=== PATIENT | male | born 1965 | race Caucasian/White ===

== ENCOUNTER 2018-02-16 14:37 | Emergency (ER) | payer BC ==
--- NOTE | 2018-02-16 14:52 | ED Physician Documentation ---
PD HPI UPPER EXT INJURY - Stated complaint Stated Complaint: R ARM INJ - Chief complaint Chief Complaint: Ext Problem - History obtained from History obtained from: Patient - History of Present Illness Location: Right, Arm Type of injury: Other (he was lifting heavy object flexion of arms in front of him, and felt a pop and pain in lower right upper arm, upper forearm area. Pain with flexion and pulling. Has swelling appearance lower upper arm anteriorly.) Timing - onset: Today Timing - details: Abrupt onset, Still present Worsened by: Moving (flexion and pulling with right arm.) Associated symptoms: Swelling. No: Weakness, Numbness Contributing factors: Anticoagulated Similar symptoms before: Has not had sx before Recently seen: Not recently seen Review of Systems Skin: denies: Rash, Lesions, Abrasion (s), Laceration (s) Musculoskeletal: reports: Extremity pain Neurologic: denies: Focal weakness, Numbness PD PAST MEDICAL HISTORY - Past Medical History Past Medical History: Yes Cardiovascular: Hypertension, Pulmonary embolism - Past Surgical History Past Surgical History: Yes General: Other Ortho: Other HEENT: Tonsil/Adenoidectomy - Present Medications Home Medications: Ambulatory Orders Medication Instructions Recorded Confirmed HYDROcod/ACETAM 5/325 [[place] 5/325] 1 tab PO Q6H PRN #15 tablet 02/16/18 Rivaroxaban [Xarelto] 20 mg PO DAILY 02/16/18 02/16/18 Spironolactone 25 mg PO DAILY 02/16/18 02/16/18 amLODIPine [Norvasc] 5 mg PO DAILY 02/16/18 02/16/18 - Allergies Allergies/Adverse Reactions: Allergies Allergy/AdvReac Type Severity Reaction Status Date / Time Sulfa (Sulfonamide Allergy Rash Verified 02/16/18 14:44 Antibiotics) - Social History Does the pt smoke?: No Smoking Status: Never smoker Does the pt drink ETOH?: Yes Does the pt have substance abuse?: No - Immunizations Immunizations are current?: Yes PD ED PE NORMAL - Vitals Vital signs reviewed: Yes - General General: Alert and oriented X 3, No acute distress, Well developed/nourished - Derm Derm: Normal color, Warm and dry, No rash - Extremities Extremities: Other (right arm with some swelling and tenderness anterior lower part of upper arm. Flexion of elbow against resistance has some pain but the biceps muscle and insertions feels intact and not as tender. Tender is more lateral. Pain worst with supination of forearm against resistance and pain is at lateral AC/lower humeral area. ) - Neuro Neuro: Alert and oriented X 3, No motor deficit, No sensory deficit Results - Vitals Vitals: Vital Signs - 24 hr 02/16/18 14:42 Temperature 36.3 C L Heart Rate 76 Respiratory 18 Rate Blood Pressure 164/99 H O2 Saturation 95 Oxygen O2 Source Room air - Rads (name of study) right elbow Radiology: Prelim report reviewed (no fractures nor acute osseous abnormality.), EMP read contemporaneously PD MEDICAL DECISION MAKING - ED course Complexity details: considered differential (does not seem biceps tear. Seems more some injury to brachioradialis muscle. Can still do movements, so not seeming complete tear. Will likely bruise since on blood thinner. ), d/w patient Departure - Departure Disposition: 01 Home, Self Care Clinical Impression: Muscle strain of right upper arm Qualifiers: Encounter type: initial encounter Qualified Code(s): S46.911A - Strain of unspecified muscle, fascia and tendon at shoulder and upper arm level, right arm, initial encounter Condition: Stable Record reviewed to determine appropriate education?: Yes Instructions: ED Strain Muscle Ext Follow-Up: [facility] [Provider Group] Prescriptions: HYDROcod/ACETAM 5/325 [[place] 5/325] 1 tab PO Q6H PRN #15 tablet PRN Reason: Pain Comments: Your x-ray appears normal. It does sound like a muscle strain and may be partial tear but it does not seem like the biceps tendons. Sling for the arm much the time for the next several days to week. Gentle range of motion of the arm periodically so does not get stiff at the elbow. Use some Tylenol if needed for pains. Add hydrocodone if needed for worse pain. Follow-up with your primary care or orthopedics in about a week if it is not improving readily. Discharge Date/Time: 02/16/18 16:28
[2018-02-16] MEDS: HYDROcod/ACETAM 5/325 MG TABLET PO STA ×2 (15:17→16:01)
--- NOTE | 2018-02-16 15:57 | XRAY Report ---
Reason: heard a pop after lifting injury Procedure Date: 02/16/2018 Accession Number: [id number] / [id number] Procedure: XR - Elbow 3 View RT CPT Code: FULL RESULT: EXAM: RIGHT ELBOW RADIOGRAPHY EXAM DATE: 02/16/2018 03:30 PM. CLINICAL HISTORY: [place] a pop after lifting injury. COMPARISON: None available. TECHNIQUE: 3 views. FINDINGS: No acute fracture or dislocation. Osseous alignment is normal. Joint spaces are preserved. Small corticated ossicle at the medial margin of the coronoid process on the AP projection likely chronic. No joint effusion. Question redundancy of the biceps tendon. Soft tissues otherwise unremarkable. IMPRESSION: No acute fracture or dislocation of the right elbow. [facility]
[2018-02-16 16:28] VITALS: BP 145/95
== END 2018-02-16 16:28 | disposition home or self-care (01) ==
LOC: ED 14:37
DX: S46.911A Strain of unspecified muscle, fascia and tendon at shoulder and upper arm level, right arm, initial encounter (principal); Z79.01 Long term (current) use of anticoagulants; I10 Essential (primary) hypertension; X50.0XXA Overexertion from strenuous movement or load, initial encounter
CPT/HCPCS: 73080; 99283; A9270